=== PATIENT | female | born 1975 | race Caucasian/White ===

== ENCOUNTER 2017-02-04 07:51 | Emergency (ER) | payer BC, MEDICAID ==
[2017-02-04 08:06] VITALS: BP 142/81
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
== END 2017-02-04 08:59 | disposition home or self-care (01) ==
LOC: UCCORT 07:51
DX: J06.9 Acute upper respiratory infection, unspecified (principal); Z88.1 Allergy status to other antibiotic agents; Z88.0 Allergy status to penicillin
CPT/HCPCS: 99202; G0463

== ENCOUNTER 2017-02-08 16:57 | Emergency (ER) | payer BC, MEDICAID ==
[2017-02-08 17:50] VITALS: BP 145/81
--- NOTE | 2017-02-08 18:00 | UC ---
Respiratory Complaint HPI - HPI Summary HPI Summary: 41 YEAR OLD FEMALE PRESENTS WITH SEVERE COUGH WITH INSPIRATION. ON A SIDE NOTE THIS IS HER 3 VISIT TO . - History of Current Complaint Chief Complaint: UCGeneralIllness Stated Complaint: COUGH SORE THROAT SHORTNESS OF BREATH Time Seen by Provider: 02/08/17 18:00 Hx Obtained From: Patient Hx Last Menstrual Period: 01/24/17 Onset/Duration: Gradual Onset, Lasting Days Severity Initially: Moderate Severity Currently: Moderate Pain Scale Used: 0-10 Numeric - 5 - Allergies/Home Medications Allergies/Adverse Reactions: Allergies Allergy/AdvReac Type Severity Reaction Status Date / Time Erythromycin Allergy Severe Rash Verified 02/08/17 17:44 Penicillins Allergy Severe Rash Verified 02/08/17 17:44 Sertraline [From Zoloft] Allergy Severe Difficulty Verified 02/08/17 17:44 Breathing iv contrast dye Allergy Severe Difficulty Uncoded 02/08/17 17:44 Breathing Home Medications: Home Medications diPHENhydraMINE PO* [Benadryl PO 25 MG TAB*] 25 mg PO BEDTIME PRN 02/08/17 [ History Confirmed 02/08/17] guaiFENesin ER TAB [Mucinex*] 600 mg PO BID PRN 02/08/17 [History Confirmed ] PMH/Surg Hx/FS Hx/Imm Hx Previously Healthy: Yes - Surgical History Surgical History: Yes Surgery Procedure, Year, and Place: tubal 11/2011. rt tarsal tunnel- 2008 and . wisdom teeth extraction. right carpal tunnel, dequervens, cubital tunnel release November 2014. left peronial tendon October 2012 - Family History Known Family History: Positive: None - Social History Alcohol Use: Rare Substance Use Type: None Smoking Status (MU): Never Smoked Tobacco - Immunization History Most Recent Influenza Vaccination: no Review of Systems Constitutional: Negative Skin: Negative Eyes: Negative ENT: Nasal Discharge, Sinus Congestion, Sinus Pain/Tenderness Respiratory: Shortness Of Breath, Cough Cardiovascular: Negative Gastrointestinal: Negative Genitourinary: Negative Motor: Negative Neurovascular: Negative Musculoskeletal: Negative Neurological: Negative Psychological: Negative All Other Systems Reviewed And Are Negative: Yes Physical Exam Triage Information Reviewed: Yes Vital Signs: Initial Vital Signs Temp 36.8 C 02/08/17 17:46 Pulse 90 02/08/17 17:46 Resp 18 02/08/17 17:46 BP 145/81 02/08/17 17:46 Pulse Ox 99 02/08/17 17:46 Vital Signs Reviewed: Yes Eye Exam: Normal ENT Exam: Normal Dental Exam: Normal Neck exam: Normal Neck: Positive: 1 Respiratory: Positive: Rhonchi, Wheezing, Inspiration Cardiovascular Exam: Normal Abdominal Exam: Normal Musculoskeletal Exam: Normal Neurological Exam: Normal Psychological Exam: Normal Skin Exam: Normal UC Diagnostic Evaluation - Laboratory O2 Sat by Pulse Oximetry: 99 Respiratory Course/Dx - Differential Dx/Diagnosis Provider Diagnoses: COUGH. BRONCHITIS Discharge - Discharge Plan Condition: Stable Disposition: HOME Prescriptions: Albuterol HFA INHALER* [Ventolin HFA Inhaler*] 1 puff INH Q6H PRN #1 mdi PRN Reason: Wheezing Albuterol/Ipratropium NEB.CHA* [Duoneb (Albuterol 2.5 MG/Ipratropium 0.5 MG)] 1 neb INH Q6H PRN #90 neb.cha PRN Reason: Wheezing Benzonatate [TESSALON 200 MG CAP] 200 mg PO TID PRN #30 cap PRN Reason: Cough Levofloxacin TAB* [Levaquin TAB*] 750 mg PO DAILY #7 tab Methylprednisolone [Medrol Dosepak 4 MG*] 4 mg PO .SEE MO INSTRUCTION #21 tab Promethazine-Dm [Promethazine/Dextromethor 6.25-15 mg/5Ml] 1 teasp PO Q8H PRN # 120 ml PRN Reason: Cough Patient Education Materials: Asthma (ED) Referrals: Siena He [Primary Care Provider] -
[2017-02-08] MEDS ORDERED: Albuterol/Ipratropium NEB.SOL* Albuterol 2.5 MG/Ipratropium 0.5 MG 3 ML INH ONE (18:13)
== END 2017-02-08 18:42 | disposition home or self-care (01) ==
LOC: UCCORT 16:57
DX: J40 Bronchitis, not specified as acute or chronic (principal); Z88.1 Allergy status to other antibiotic agents; Z88.0 Allergy status to penicillin; Z91.041 Radiographic dye allergy status; Z88.8 Allergy status to other drugs, medicaments and biological substances
CPT/HCPCS: 99212; A9270-GY; G0463

== ENCOUNTER 2017-06-11 13:40 | Emergency (ER) | payer BC, MEDICAID ==
[2017-06-11 15:30] VITALS: BP 134/90
--- NOTE | 2017-06-11 16:46 | UC ---
Throat Pain/Nasal Max HPI - HPI Summary HPI Summary: PT IS C/O A 10 DAY HX OR SINUS INFECTION, EAR PRESSURE, DRAINAGE AND NOW COUGH AND CHEST SORENESS. NO FEVER, CP. DOES HAVE HX ASTHMA - History of Current Complaint Chief Complaint: UCRespiratory Stated Complaint: NASAL MAX/DEEP COUGH Time Seen by Provider: 06/11/17 16:36 Hx Obtained From: Patient Hx Last Menstrual Period: 06/04 ?: No Onset/Duration: Gradual Onset Severity: Moderate Pain Intensity: 0 Cough: Nonproductive Associated Signs & Symptoms: Positive: Wheezing, Sinus Discomfort, Nasal Discharge - Epiglottits Risk Factors Epiglottis Risk Factors: Negative - Allergies/Home Medications Allergies/Adverse Reactions: Allergies Allergy/AdvReac Type Severity Reaction Status Date / Time MS Erythromycin Allergy Severe Rash Verified 02/08/17 17:44 [Erythromycin] MS Penicillins [Penicillins] Allergy Severe Rash Verified 02/08/17 17:44 MS Sertraline [From Zoloft] Allergy Severe Difficulty Verified 02/08/17 17:44 Breathing iv contrast dye Allergy Severe Difficulty Uncoded 02/08/17 17:44 Breathing stress test injection dye Allergy Difficulty Uncoded 06/11/17 15:15 Breathing Home Medications: Home Medications Acetaminophen [Acetaminophen Extra Strength] 1,000 mg PO TID PRN 06/11/17 [ History Confirmed 06/11/17] Azelastine 0.15% NASAL(NF) [Astepro 0.15% NASAL (NF)] 1 spray NASAL BID [History Confirmed 06/11/17] Fluticasone NASAL SPRAY 50MCG* [Flonase NASAL SPRAY 50MCG*] 1 spray BOTH NARES DAILY 06/11/17 [History Confirmed 06/11/17] Mometasone/Formoter 100/5 MDI* [Dulera 100/5 MDI*] 2 puff INH BID 06/11/17 [ History Confirmed 06/11/17] PMH/Surg Hx/FS Hx/Imm Hx Respiratory History: Asthma - Surgical History Surgical History: Yes Surgery Procedure, Year, and Place: tubal 11/2011; peronial tendon repair 2012. rt tarsal tunnel- 2008 and 06/2010. wisdom teeth extraction. right carpal tunnel, dequervens, cubital tunnel release November 2014. left peronial tendon October 2012 - Family History Known Family History: Positive: None - Social History Occupation: Employed Full-time Lives: With Family Alcohol Use: Rare Substance Use Type: None Smoking Status (MU): Never Smoked Tobacco - Immunization History Most Recent Influenza Vaccination: no Vaccination Up to Date: Yes Review of Systems Constitutional: Fatigue Skin: Negative Eyes: Negative ENT: Ear Ache, Nasal Discharge, Sinus Congestion, Sinus Pain/Tenderness Respiratory: Cough Cardiovascular: Negative Gastrointestinal: Negative Genitourinary: Negative Motor: Negative Neurovascular: Negative Musculoskeletal: Negative Neurological: Negative Psychological: Negative Is Patient Immunocompromised?: No All Other Systems Reviewed And Are Negative: Yes Physical Exam Triage Information Reviewed: Yes Appearance: Well-Appearing Vital Signs: Initial Vital Signs Temp 99.1 F 06/11/17 15:24 Pulse 70 06/11/17 15:24 Resp 18 06/11/17 15:24 BP 134/90 06/11/17 15:24 Pulse Ox 99 06/11/17 15:24 Vital Signs Reviewed: Yes Eye Exam: Normal ENT: Positive: Pharynx normal, Nasal congestion, Nasal drainage, TMs normal, Sinus tenderness Neck: Positive: Supple, Nontender, No Lymphadenopathy Respiratory: Positive: Lungs clear, No respiratory distress, Decreased breath sounds, Other: - npc Cardiovascular: Positive: RRR, No Murmur, Pulses Normal Abdomen Description: Positive: Nontender, No Organomegaly, Soft Bowel Sounds: Positive: Present Musculoskeletal: Positive: No Edema Neurological: Positive: Alert Psychological: Positive: Age Appropriate Behavior Skin Exam: Normal Throat Pain/Nasal Course/Dx - Course Course Of Treatment: exam c/w sinusitis and asthma flare. will tx with antibiotic, pt rescue inhaler and prednisone. BP mildly elevated, no hx htn. likely from acute illness. will have it rechecked on f/u. - Differential Dx/Diagnosis Provider Diagnoses: sinusitis, asthma flare Discharge - Discharge Plan Condition: Stable Disposition: HOME Prescriptions: DOXYcycline CAP(*) [DOXYcycline 100MG CAP(*)] 100 mg PO BID 10 Days #20 cap predniSONE TAB* [Deltasone TAB*] 40 mg PO DAILY 3 Days #6 tab Patient Education Materials: Asthma (ED), Sinusitis (ED) Referrals: Siena He Lori [Primary Care Provider] - 5 Days Additional Instructions: INCREASE RESCUE INHALER TO 2 PUFFS EVERY 6 HOURS(ALBUTEROL)
== END 2017-06-11 17:02 | disposition home or self-care (01) ==
LOC: UCCORT 13:40
DX: J32.9 Chronic sinusitis, unspecified (principal); J45.909 Unspecified asthma, uncomplicated
CPT/HCPCS: 99212; G0463

== ENCOUNTER 2017-07-18 08:10 | Emergency (ER) | payer BC, MEDICAID ==
[2017-07-18 08:38] VITALS: BP 125/85
--- NOTE | 2017-07-18 09:19 | UC ---
Respiratory Complaint HPI - HPI Summary HPI Summary: 42 yo female ill x 2 weeks sinus pressure and pain productive cough no CP or SOB - History of Current Complaint Chief Complaint: UCRespiratory Stated Complaint: RESPIRATORY, SORE THROAT Hx Obtained From: Patient Hx Last Menstrual Period: 06/30/17 Onset/Duration: Gradual Onset, Lasting Weeks Timing: Constant Severity Initially: Mild Severity Currently: Moderate Pain Intensity: 5 Pain Scale Used: 0-10 Numeric Character: Cough: Productive Aggravating Factors: Nothing Alleviating Factors: Nothing Associated Signs And Symptoms: Positive: Nasal Congestion, Hoarseness, Sinus Discomfort. Negative: Wheezing - Allergies/Home Medications Allergies/Adverse Reactions: Allergies Allergy/AdvReac Type Severity Reaction Status Date / Time erythromycin base Allergy Rash Verified 07/18/17 08:28 Penicillins Allergy Rash Verified 07/18/17 08:28 sertraline Allergy Difficulty Verified 07/18/17 08:28 Breathing iv contrast dye Allergy Severe Difficulty Uncoded 02/08/17 17:44 Breathing stress test injection dye Allergy Difficulty Uncoded 06/11/17 15:15 Breathing Home Medications: Home Medications Albuterol 2.5MG/3ML (0.083%)* [Ventolin 2.5 MG/3 ML NEB.CHA*] 2.5 mg INH BID PRN 07/18/17 [History Confirmed 07/18/17] Azelastine/Fluticasone TAYLOR(NF [Dymista(NF)] 1 spray BOTH NARES BID 07/18/17 [ History Confirmed 07/18/17] Guaifen/Phenyleph/Acetaminophn [Mucinex Sinus-Max Pressur] 1 tab PO Q4H PRN [History Confirmed 07/18/17] PMH/Surg Hx/FS Hx/Imm Hx Previously Healthy: Yes Respiratory History: Asthma, Bronchitis, Pneumonia - Surgical History Surgical History: Yes Surgery Procedure, Year, and Place: tubal 11/2011; peronial tendon repair 2012. rt tarsal tunnel- 2008 and 06/2010. wisdom teeth extraction. right carpal tunnel, dequervens, cubital tunnel release November 2014. left peronial tendon October 2012 - Family History Known Family History: Positive: Hypertension - Social History Alcohol Use: Rare Substance Use Type: None Smoking Status (MU): Never Smoked Tobacco - Immunization History Most Recent Influenza Vaccination: no Vaccination Up to Date: Yes Review of Systems Constitutional: Fatigue Skin: Negative Eyes: Negative ENT: Dental Pain, Nasal Discharge, Sinus Congestion, Sinus Pain/Tenderness Respiratory: Cough Cardiovascular: Negative Gastrointestinal: Negative Genitourinary: Negative Motor: Negative Neurovascular: Negative Musculoskeletal: Negative Neurological: Negative Psychological: Negative Is Patient Immunocompromised?: No All Other Systems Reviewed And Are Negative: Yes Physical Exam Triage Information Reviewed: Yes Appearance: Well-Appearing, No Pain Distress, Well-Nourished Vital Signs: Initial Vital Signs Temp 97.8 F 07/18/17 08:31 Pulse 86 07/18/17 08:31 Resp 20 07/18/17 08:31 BP 125/85 07/18/17 08:31 Pulse Ox 99 07/18/17 08:31 Vital Signs Reviewed: Yes Eyes: Positive: Conjunctiva Clear ENT: Positive: Hearing grossly normal, Pharynx normal, Sinus tenderness, Uvula midline. Negative: Nasal congestion, Nasal drainage, Tonsillar swelling, Tonsillar exudate, Dental tenderness Neck: Positive: Supple, Nontender, No Lymphadenopathy Respiratory: Positive: Lungs clear, Normal breath sounds, No respiratory distress, No accessory muscle use Cardiovascular: Positive: RRR Musculoskeletal: Positive: ROM Intact, No Edema Neurological: Positive: Alert Psychological Exam: Normal Skin Exam: Normal UC Diagnostic Evaluation - Laboratory O2 Sat by Pulse Oximetry: 99 - noprmal/not hypoxic Respiratory Course/Dx - Differential Dx/Diagnosis Provider Diagnoses: acute sinusitis. acute bronchitis Discharge - Sign-Out/Discharge Documenting (check all that apply): Discharge - Discharge Plan Condition: Stable Disposition: HOME Prescriptions: DOXYcycline CAP(*) [DOXYcycline 100MG CAP(*)] 100 mg PO BID #20 cap Fluconazole 150 MG (NF) [Diflucan 150 mg (NF)] 150 mg PO ONCE #1 tab Patient Education Materials: Acute Bronchitis (ED) Referrals: Siena He [Primary Care Provider] - If Needed Additional Instructions: phenergan-dm syrup one tsp 3x day as needed for cough - Billing Disposition and Condition Condition: STABLE Disposition: HOME
== END 2017-07-18 09:24 | disposition home or self-care (01) ==
LOC: UCCORT 08:10
DX: J01.90 Acute sinusitis, unspecified (principal); J20.9 Acute bronchitis, unspecified; Z88.0 Allergy status to penicillin; Z88.8 Allergy status to other drugs, medicaments and biological substances; Z88.3 Allergy status to other anti-infective agents; Z91.041 Radiographic dye allergy status
CPT/HCPCS: 99212; G0463